=== PATIENT | male | born 1985 | race Caucasian/White ===

== ENCOUNTER 2021-04-17 09:16 | Outpatient (CLI) | payer OTHER, SELFPAY ==
--- NOTE | 2021-04-17 12:00 | NEURO_ITS ---
Impression: # Complains of numbness of hands. # Bilateral Carpal Tunnel Syndrome, left more than right. # No ulnar neuropathy. # Normal needle/EMG exam. # Patient does have ulnar to median cross innervation. Nerve Conduction Studies Anti Sensory Summary Table Stim Site NR Peak (ms) P-T Amp (?V) Site1 Site2 Delta-P (ms) Dist (cm) Jovani (m/s) Left Median Anti Sensory (2-3nd Digit) Wrist 4.7 27.1 Wrist 2-3nd Digit 4.7 14.0 30 Wrist 4.6 25.6 Wrist 2-3nd Digit 4.7 14.0 30 Right Median Anti Sensory (2-3nd Digit) Wrist 4.3 56.1 Wrist 2-3nd Digit 4.3 14.0 33 Wrist 4.3 35.1 Wrist 2-3nd Digit 4.3 14.0 33 Left Radial Anti Sensory (Base 1st Digit) Wrist 1.8 47.1 Wrist Base 1st Digit 1.8 0.0 Right Radial Anti Sensory (Base 1st Digit) Wrist 2.4 26.4 Wrist Base 1st Digit 2.4 0.0 Left Ulnar Anti Sensory (5th Digit) Wrist 2.8 65.0 Wrist 5th Digit 2.8 14.0 50 Right Ulnar Anti Sensory (5th Digit) Wrist 2.8 77.1 Wrist 5th Digit 2.8 14.0 50 Motor Summary Table Stim Site NR Onset (ms) O-P Amp (mV) Site1 Site2 Delta-0 (ms) Dist (cm) Jovani (m/s) Left Median Motor Run #2 (Abd Poll Brev) Wrist 4.9 1.3 Elbow Wrist 4.5 26.0 58 Elbow 9.4 4.3 Right Median Motor (Abd Poll Brev) Wrist 4.1 5.4 Elbow Wrist 4.9 28.0 57 Elbow 9.0 6.6 Left Ulnar Motor (Abd Dig Minimi) Wrist 2.5 7.4 A Elbow Wrist 4.9 29.0 59 A Elbow 7.4 6.7 Right Ulnar Motor (Abd Dig Minimi) Wrist 2.8 7.7 A Elbow Wrist 4.7 28.0 60 A Elbow 7.5 5.6 F Wave Studies NR F-Lat (ms) L-R F-Lat (ms) Left Median (Mrkrs) (Abd Poll Brev) 30.09 0.09 Right Median (Mrkrs) (Abd Poll Brev) 30.00 0.09 Left Ulnar (Mrkrs) (Abd Dig Min) 28.30 1.45 Right Ulnar (Mrkrs) (Abd Dig Min) 29.75 1.45 EMG Side Muscle Nerve Root Ins Act Fibs Amp Dur Recrt Comment Right 1stDorInt Ulnar C8-T1 Nml Nml Nml Nml Nml Right Ext Indicis Radial (Post Int) C7-8 Nml Nml Nml Nml Nml Right Ext Digitorum Radial (Post Int) C7-8 Nml Nml Nml Nml Nml Right BrachioRad Radial C5-6 Nml Nml Nml Nml Nml Right PronatorTeres Median C6-7 Nml Nml Nml Nml Nml Right Abd Poll Brev Median C8-T1 Nml Nml Nml Nml Nml Left 1stDorInt Ulnar C8-T1 Nml Nml Nml Nml Nml Left Ext Indicis Radial (Post Int) C7-8 Nml Nml Nml Nml Nml Left Ext Digitorum Radial (Post Int) C7-8 Nml Nml Nml Nml Nml Left BrachioRad Radial C5-6 Nml Nml Nml Nml Nml Left PronatorTeres Median C6-7 Nml Nml Nml Nml Nml Left Abd Poll Brev Median C8-T1 Nml Nml Nml Nml Nml Right ABD Dig Min Ulnar C8-T1 Nml Nml Nml Nml Nml Left ABD Dig Min Ulnar C8-T1 Nml Nml Nml Nml Nml MTDD
== END 2021-04-17 09:17 | disposition home or self-care (01) ==
PROVIDERS: PCP Nurse Practitioner Adult Health; Visit Provider Nurse Practitioner Adult Health
DX: R20.2 Paresthesia of skin (principal); G56.03 Carpal tunnel syndrome, bilateral upper limbs
CPT/HCPCS: 95886; 95911

== ENCOUNTER 2022-04-30 10:10 | Emergency (ER) | payer OTHER, SELFPAY ==
--- NOTE | ~2022-04-30 | CT_ITS ---
EXAMINATION: CT abdomen pelvis w con DATE: 04/30/2022 11:05 INDICATION: Abdominal pain TECHNIQUE: Computed tomography (CT) of the abdomen and pelvis was performed with 100 mL Omnipaque-350 intravenous contrast. Automated exposure control and iterative reconstruction technique were employe d. The dose-length product was 300.76 mGy-cm. COMPARISON: None FINDINGS: Lung bases are clear. Heart size is normal. No pericardial or pleural effusion. Liver, gallbladder sp alonso, pancreas, bilateral adrenal glands and kidneys are normal. The appendix is not definitively vis ualized. No pericecal inflammatory change to suggest acute appendicitis. There is wall thickening at the rectum suggesting proctitis. The more proximal bowels are unremarkable with normal wall thickenin g or obstruction. Bladder is normal. No free intraperitoneal gas or fluid. No pathologically enlarged abdominal or pelvic lymphadenopathy. Bilateral L4 pars intra-articular is defects without spondyloli sthesis. IMPRESSION: 1. Wall thickening at the rectum suspicious for proctitis which could be infectious or inflammatory i n etiology. No other acute intra-abdominal/pelvic process. 2. Bilateral L4 pars intra-articularis defects. Reviewed, dictated and finalized at location B. IMPRESSION: 1. Wall thickening at the rectum suspicious for proctitis which could be infect ious or inflammatory in etiology. No other acute intra-abdominal/pelvic process . 2. Bilateral L4 pars intra-articularis defects.
[2022-04-30 10:15] VITALS: BP 136/98; PULSE 61; RESP 18; TEMP 36.4; O2SAT 100
[2022-04-30 10:31] LABS: Appearance Urine Clear (Clear); Bilirubin Urine 1+ (Negative); Blood Urine Negative (Negative); Color Urine Yellow (Yellow); Glucose Urine UA Negative (Negative); Ketones Urine Trace mg/dL (Negative); Leukocyte Esterase Ur Negative LEU/UL (Negative); Nitrate Urine Negative (Negative); Protein Urine Trace mg/dL (Negative); Specific Grav Ur 1.025 (1.001-1.035); Urobilinogen Urine 0.2 mg/dL (<2.0); pH Urine 6.5 (5.0-9.0)
[2022-04-30 10:32] LABS: Basophils Percent Auto 0.2 % (0.2-1.2); Eosinophils Percent Auto 0.4 % (0-4.4); Hemoglobin 16.4 g/dL (14.0-18.0); Immature Granulocyte Absolute 0.03 K/mm3 (0.00-0.031); Immature Granulocyte Percent A 0.4 % (0-0.5); Lymphocytes Absolute Auto 2.23 K/mm3 (0.9-3.2); Lymphocytes Percent Auto 27.6 % (18.3-44.2); Mean Corpuscular HGB Conc 34.9 g/dl (32-36); Mean Corpuscular Volume 91.8 fl (80-100); Mean Platelet Volume 8.9 fl (7.4-10.4); Monocytes Absolute Auto 0.7 K/mm3 (0.1-0.6); Monocytes Percent Auto 8.2 % (2.6-8.5); Neutrophils Absolute Auto 5.1 K/mm3 (1.3-6.7); Neutrophils Percent Auto 63.2 % (45.5-73.1); Platelet Count Result 293 k/mm3 (150-375); Red Blood Count 5.12 M/mm3 (4.6-6.20); Red Cell Distribution Width 12.1 % (11.5-14.5); White Blood Count 8.1 K/mm3 (4.5-10.0)
--- NOTE | 2022-04-30 10:37 | ED.ABDPAIN ---
HPI - Abdominal Pain General Chief Complaint: Abdominal Pain Stated Complaint: abd pain Time Seen by Provider: 04/30/22 10:15 Source: patient Mode of arrival: ambulatory Limitations: no limitations Related Data Home Medications Medication Instructions Recorded Confirmed lisdexamfetamine 40 mg capsule mg 04/30/22 (Vyvanse) Allergies Allergy/AdvReac Type Severity Reaction Status Date / Time No Known Allergies Allergy Verified 04/30/22 10:20 Review of Systems Review of Systems: CONSTITUTIONAL: Denies fever, chills, or sweats. EYES: Denies visual changes, redness, or discharge. ENT: Denies rhinorrhea, congestion, sore throat, or otalgia. CARDIOVASCULAR: Denies chest pain, palpitations, or edema. RESPIRATORY: Denies cough or dyspnea. GASTROINTESTINAL: Epigastric abdominal pain, some nausea at times. Denies diarrhea GENITOURINARY: Denies dysuria or hematuria. SKIN: Denies rash or itching. MUSCULOSKELETAL: Denies back pain, joint pain, or myalgia. NEUROLOGIC: Denies headache, numbness, or weakness. PSYCHIATRIC: Denies anxiety or depression. All systems reviewed & are unremarkable except as noted in HPI and below PMFSH Past Medical History Medical History (Updated 04/30/22 @ 11:39 by Miguel Jennings APRN) No pertinent past medical history Surgical History Surgical History (Updated 04/30/22 @ 10:41 by Miguel Jennings APRN) No pertinent past surgical history Exam Narrative: GENERAL: Well-appearing, well-nourished, and in no acute distress. HEAD: Normocephalic, atraumatic. EYES: PERRLA and EOMI. ENT: Nares clear, no rhinorrhea or epistaxis. Mucous membranes moist. NECK: Supple. CHEST: Clear to auscultation. No respiratory distress. HEART: Regular rate and rhythm. No murmur heard. Normal peripheral pulses. ABDOMEN: Soft, nontender, nondistended, normal active bowel sounds. EXTREMITIES: Normal range of motion. No edema. SKIN: Warm, dry, no rash. NEURO: No focal deficits. Alert and oriented x3. PSYCH: Normal mood and affect. Course Vital Signs Vital signs: Vital Signs Temperature 36.4 C 04/30/22 10:15 Pulse Rate 61 04/30/22 10:15 Respiratory Rate 18 04/30/22 10:15 Blood Pressure 136/98 H 04/30/22 10:15 Pulse Oximetry 100 04/30/22 10:15 Oxygen Delivery Room Air 04/30/22 10:15 Temperature 36.4 C 04/30/22 10:15 Pulse Rate 61 04/30/22 10:15 Respiratory Rate 18 04/30/22 10:15 Blood Pressure 136/98 H 04/30/22 10:15 Pulse Oximetry 100 04/30/22 10:15 Oxygen Delivery Room Air 04/30/22 10:15 MDM - Abdominal Pain Lab Data Result diagrams: 04/30/22 10:24 04/30/22 10:24 Labs: Lab Results 04/30/22 04/30/22 04/30/22 Range/Units 10:17 10:24 10:24 WBC 8.1 (4.5-10.0) K/mm3 RBC 5.12 (4.6-6.20) M/mm3 Hgb 16.4 (14.0-18.0) g/dL Hct 47.0 (42.0-52.0) % MCV 91.8 (80-100) fl MCH 32.0 (26-34) pg MCHC 34.9 (32-36) g/dl RDW 12.1 (11.5-14.5) % Plt Count 293 (150-375) k/mm3 MPV 8.9 (7.4-10.4) fl Immature Gran % (Auto) 0.4 (0-0.5) % Neut % (Auto) 63.2 (45.5-73.1) % Lymph % (Auto) 27.6 (18.3-44.2) % Sawyer % (Auto) 8.2 (2.6-8.5) % Eos % (Auto) 0.4 (0-4.4) % Baso % (Auto) 0.2 (0.2-1.2) % Lymph # (Auto) 2.23 (0.9-3.2) K/mm3 Sawyer # (Auto) 0.7 H (0.1-0.6) K/mm3 Eos # (Auto) 0.0 (0-0.3) K/mm3 Baso # (Auto) 0.0 (0.0-0.1) K/mm3 Abs Immat Gran (auto) 0.03 (0.00-0.031) K/mm3 Absolute Neuts (auto) 5.1 (1.3-6.7) K/mm3 Absolute Nucleated RBC 0.0 (0.0-0.012) K/mm3 Nucleated RBC % 0.0 (0.0-0.2) % Sodium 142 (137-145) mmol/L Potassium 3.8 (3.4-5.0) mmol/L Chloride 100 (98-107) mmol/L Carbon Dioxide 29 (22-30) mmol/L Anion Gap 13 (8-16) mmol/L BUN 13 (9-20) mg/dL Creatinine 0.90 (0.7-1.3) mg/dL Estim Creat Clear Calc 103 ml/min Estimated GFR > 60 (59 - ) Glucose 81 (65-110) mg/dL
[2022-04-30 10:45] LABS: Alanine Aminotransferase 22 U/L (6-50); Alkaline Phosphatase 51 U/L (38-126); Anion Gap 13 mmol/L (8-16); Aspartate Amino Transferase 32 U/L (17-59); Bilirubin,Total 1.1 mg/dL (0.2-1.3); Blood Urea Nitrogen 13 mg/dL (9-20); Calcium 9.7 mg/dL (8.4-10.2); Carbon Dioxide 29 mmol/L (22-30); Chloride 100 mmol/L (98-107); Estimated CRCL calculation 103 ml/min; Estimated Glomerular Filt Rate > 60; Glucose 81 mg/dL (65-110); Lipase 40 U/L (23-300); Potassium 3.8 mmol/L (3.4-5.0); Sodium 142 mmol/L (137-145)
[2022-04-30 10:54] LABS: Bacteria Urine Trace /hpf; Mucus Urine Few /lpf; RBC Urine 0-2 /hpf (0-2); Squamous Epithelial Cell Urine Rare /hpf (Few); WBC Urine 0-3 /hpf
[2022-04-30 10:55] LABS: Add Urine Microscopic? YES
[2022-04-30 11:54] VITALS: BP 134/89; PULSE 64; RESP 15; O2SAT 99
--- NOTE | 2022-05-07 01:22 | ED.ABDPAIN ---
HPI - Abdominal Pain General Chief Complaint: Abdominal Pain Stated Complaint: abd pain Time Seen by Provider: 04/30/22 10:15 Source: patient Mode of arrival: ambulatory Limitations: no limitations History of Present Illness HPI narrative: Presents c/o mid ABD pain that started two days ago. States had small BM this AM without relief in sx. also having epigastric discomfort at times with reflux symptoms despite use of omeprazole. Denies N/V/D, fever or other sx at this time. Related Data Home Medications Medication Instructions Recorded Confirmed lisdexamfetamine 40 mg capsule mg 04/30/22 (Vyvanse) Allergies Allergy/AdvReac Type Severity Reaction Status Date / Time No Known Allergies Allergy Verified 04/30/22 10:20 Review of Systems Review of Systems: CONSTITUTIONAL: Denies fever, chills, or sweats. EYES: Denies visual changes, redness, or discharge. ENT: Denies rhinorrhea, congestion, sore throat, or otalgia. CARDIOVASCULAR: Denies chest pain, palpitations, or edema. RESPIRATORY: Denies cough or dyspnea. GASTROINTESTINAL: Generalized mid abdominal pain. Denies nausea, vomiting, or diarrhea. GENITOURINARY: Denies dysuria or hematuria. SKIN: Denies rash or itching. MUSCULOSKELETAL: Denies back pain, joint pain, or myalgia. NEUROLOGIC: Denies headache, numbness, or weakness. PSYCHIATRIC: Denies anxiety or depression. [facility] Past Medical History Medical History (Updated 05/01/22 @ 00:00 by Hany Correia) No pertinent past medical history Surgical History Surgical History (Updated 04/30/22 @ 10:41 by Miguel Jennings APRN) No pertinent past surgical history Exam Narrative: GENERAL: Well-appearing, well-nourished, and in no acute distress. HEAD: Normocephalic, atraumatic. EYES: PERRLA and EOMI. ENT: Nares clear, no rhinorrhea or epistaxis. Mucous membranes moist. NECK: Supple. CHEST: Clear to auscultation. No respiratory distress. HEART: Regular rate and rhythm. No murmur heard. Normal peripheral pulses. ABDOMEN: Soft, mild tenderness to mid abdomen. No guarding with palpation. No CVA tenderness. Abdomen nondistended, normal active bowel sounds. EXTREMITIES: Normal range of motion. No edema. SKIN: Warm, dry, no rash. NEURO: No focal deficits. Alert and oriented x3. PSYCH: Normal mood and affect. Course Vital Signs Vital signs: Vital Signs Temperature 36.4 C 04/30/22 10:15 Pulse Rate 61 04/30/22 10:15 Respiratory Rate 18 04/30/22 10:15 Blood Pressure 136/98 H 04/30/22 10:15 Pulse Oximetry 100 04/30/22 10:15 Oxygen Delivery Room Air 04/30/22 10:15 Temperature 36.4 C 04/30/22 10:15 Pulse Rate 64 04/30/22 11:54 Respiratory Rate 15 04/30/22 11:54 Blood Pressure 134/89 04/30/22 11:54 Pulse Oximetry 99 04/30/22 11:54 Oxygen Delivery Room Air 04/30/22 10:15 MDM - Abdominal Pain Lab Data Result diagrams: 04/30/22 10:24 04/30/22 10:24 Labs: Lab Results 04/30/22 04/30/22 04/30/22 Range/Units 10:17 10:24 10:24 WBC 8.1 (4.5-10.0) K/mm3 RBC 5.12 (4.6-6.20) M/mm3 Hgb 16.4 (14.0-18.0) g/dL Hct 47.0 (42.0-52.0) % MCV 91.8 (80-100) fl MCH 32.0 (26-34) pg MCHC 34.9 (32-36) g/dl RDW 12.1 (11.5-14.5) % Plt Count 293 (150-375) k/mm3 MPV 8.9 (7.4-10.4) fl Immature Gran % (Auto) 0.4 (0-0.5) % Neut % (Auto) 63.2 (45.5-73.1) % Lymph % (Auto) 27.6 (18.3-44.2) % Teller % (Auto) 8.2 (2.6-8.5) % Eos % (Auto) 0.4 (0-4.4) % Baso % (Auto) 0.2 (0.2-1.2) % Lymph # (Auto) 2.23 (0.9-3.2) K/mm3 Teller # (Auto) 0.7 H (0.1-0.6) K/mm3 Eos # (Auto) 0.0 (0-0.3) K/mm3 Baso # (Auto) 0.0 (0.0-0.1) K/mm3 Abs Immat Gran (auto) 0.03 (0.00-0.031) K/mm3 Absolute Neuts (auto) 5.1 (1.3-6.7) K/mm3 Absolute Nucleated RBC 0.0 (0.0-0.012) K/mm3 Nucleated RBC % 0.0 (0.0-0.2) % Sodium 142 (137-145) mmol/L Potassium 3.8
== END 2022-04-30 11:55 | disposition home or self-care (01) ==
PROVIDERS: General Practice; Emergency Provider Nurse Practitioner; PCP Nurse Practitioner Adult Health
DX: K62.89 Other specified diseases of anus and rectum (principal); R10.84 Generalized abdominal pain
CPT/HCPCS: 36415; 74177; 80053; 81001; 83690; 85025; 99284; Q9967